=== PATIENT | male | born 1965 | race Caucasian/White ===

== ENCOUNTER 2020-12-09 12:15 | Emergency (ER) | payer BC, SELFPAY ==
--- NOTE | ~2020-12-09 | US_ITS ---
EXAMINATION: US venous doppler [facility] DATE: 12/09/2020 15:05 INDICATION: Left lower limb pain and swelling TECHNIQUE: Grayscale ultrasound images without and with compression and Doppler ultrasound images of the left lower extremity veins were obtained. COMPARISON: None. FINDINGS: The visualized portions of left common femoral vein, profunda (deep) femoral vein, femoral vein, popl iteal vein, peroneal veins, posterior tibial veins, gastrocnemius vein and greater saphenous vein out flow are patent. IMPRESSION: 1. No deep venous thrombosis in the left lower limb. Reviewed, dictated and finalized at location B. 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
[2020-12-09 12:45] VITALS: BP 129/84; PULSE 81; RESP 18; TEMP 36.3; O2SAT 98
--- NOTE | 2020-12-09 15:18 | ED.EXTPRO ---
HPI - Extremity Problem General Chief complaint: Extremity Problem,Nontraumatic Stated complaint: possible DVT Time Seen by Provider: 12/09/20 14:41 Source: patient Mode of arrival: ambulatory Limitations: no limitations History of Present Illness HPI Narrative: This is a 55-year-old male that presents the emergency department for left lower extremity swelling x1 week. No known injury or trauma. Reports his was concerned for a blood clot, which prompted him to be seen. Denies fever, chest pain, shortness of breath, or erythema. Related Data Home Medications Medication Instructions Recorded Confirmed amlodipine 12/09/20 atorvastatin 12/09/20 lisinopril-hydrochlorothiazide tablet 12/09/20 tamsulosin 0.4 mg PO DAILY 12/09/20 tramadol 50 mg PO Q6H PRN 12/09/20 Allergies Allergy/AdvReac Type Severity Reaction Status Date / Time No Known Allergies Allergy Verified 12/09/20 12:51 Review of Systems Review of Systems: Narrative: CONSTITUTIONAL: Denies fever CARDIOVASCULAR: Reports edema. Denies chest pain RESPIRATORY: Denies dyspnea. MUSCULOSKELETAL: Reports back pain, joint pain, and myalgia. NEUROLOGIC: Denies numbness, or weakness. All systems reviewed & are unremarkable except as noted in HPI and below PMFSH Past Medical History Medical History (Updated 12/09/20 @ 15:23 by Yovana Franklin PA-C) History of hyperlipidemia History of hypertension Exam Narrative: Exam Narrative: GENERAL: Well-appearing, well-nourished, and in no acute distress. HEAD: Normocephalic, atraumatic. EYES: EOMI. EXTREMITIES: Normal range of motion. No erythema. Mild edema to the left patel and ankle. Normal DP pulses SKIN: Warm, dry, no rash. NEURO: No focal deficits. Alert and oriented x3. PSYCH: Normal mood and affect Course Vital Signs Vital signs: Vital Signs Temperature 97.4 F L 12/09/20 12:45 Pulse Rate 81 12/09/20 12:45 Respiratory Rate 18 12/09/20 12:45 Blood Pressure 129/84 12/09/20 12:45 Pulse Oximetry 98 12/09/20 12:45 Temperature 97.4 F L 12/09/20 12:45 Pulse Rate 81 12/09/20 12:45 Respiratory Rate 18 12/09/20 12:45 Blood Pressure 129/84 12/09/20 12:45 Pulse Oximetry 98 12/09/20 12:45 MDM - Extremity (Nontraumatic) MDM Narrative Medical decision making narrative: Patient presents the emergency department for left lower extremity swelling x1 week. Very mild swelling on exam. Patient denies any injuries or any pain. Left lower extremity venous Dopplers without evidence of DVT. Patient was updated on case findings. He is stable and felt appropriate for further outpatient evaluation. He was instructed to follow-up with his primary care doctor. He was given warnings to return to the ER Imaging Data Radiologist's impression: ITS Impressions Venous Doppler Study 12/09/20 15:06 IMPRESSION: 1. No deep venous thrombosis in the left lower limb. Critical Care Time Critical Care Time Critical Care Time: No Discharge Plan Discharge Clinical Impression: Lower extremity edema Patient Disposition: Home, Self-Care Condition: Stable Instructions: Leg Edema (ED) Additional Instructions: Return to the emergency department if you experience fever, chest pain, shortness of breath, increasing swelling with redness of your leg, or any other symptoms that are concerning to you Remain active. Wear compression stockings. Elevate your legs while seated Follow-up with your primary care doctor Prescriptions: No Action atorvastatin 20 mg tablet RF: 0 lisinopril-hydrochlorothiazide 20-12.5 mg tablet RF: 0 amlodipine 2.5 mg tablet RF: 0 tramadol 50 mg Tablet 50 mg PO Q6H PRN (Reason: Pain) RF: 0 tamsulosin 0.4 mg Capsule 0.4 mg PO DAILY RF: 0 Follow-up/Referrals: Amy,Juan David Hodge MD [Primary Care Provider] - 3 Days
[2020-12-09 15:31] VITALS: RESP 16
== END 2020-12-09 15:32 | disposition home or self-care (01) ==
PROVIDERS: Emergency Provider Emergency Medicine; PCP Internal Medicine
DX: R60.0 Localized edema (principal); E78.5 Hyperlipidemia, unspecified; I10 Essential (primary) hypertension
CPT/HCPCS: 93971; 99284

== ENCOUNTER 2022-07-10 14:03 | Observation (INO) | payer BC, SELFPAY ==
[2022-07-10] VITALS (37 sets, daily range): BP systolic 119–170; BP diastolic 72–96; PULSE 54–97; RESP 14–25; TEMP 36.4–37.2; O2SAT 91–98; BMI 40.8
--- NOTE | ~2022-07-10 | CT_ITS ---
EXAMINATION: CTA chest PE protocol DATE: 07/10/2022 15:44 INDICATION: Shortness of breath and midsternal chest pain. TECHNIQUE: Computed tomography (CT) pulmonary angiogram of the chest was performed with 100 mL Omnipa que-350 intravenous contrast. Additional 3D reconstructions utilizing coronal maximum intensity proje ction (MIP) were performed. Automated exposure control and iterative reconstruction technique were em ployed. The dose-length product was 998.39 mGy-cm. COMPARISON: None FINDINGS: Good contrast opacification of the pulmonary arteries. There is mild streak artifact from dense contr ast in the superior vena cava and right atrium. Scattered respiratory motion artifact most prominent in the bilateral lower lung zones where it decreases sensitivity in the smaller subsegmental pulmonar y arteries at the basilar segments of the bilateral lower lobes and at the lingula. 10 mm nodule with relatively smooth margins in the superior segment of the left lower lobe. Dependent atelectasis with round glass opacities and volume loss with bronchovascular crowding the bilateral lower lobes. No pn eumonia, pulmonary edema, pleural effusion or pneumothorax. Cardiomegaly. Small pericardial effusion. Thoracic aorta is normal caliber with no dissection. No pathologically enlarged thoracic lymphadenop athy. Visualized upper abdomen is unremarkable. Mild thoracic spondylosis with bridging osteophytes a t multiple levels consistent with diffuse idiopathic skeletal hyperostosis (DISH). Subdermal 1.9 cm s ebaceous cyst in the midline posterior to the midthoracic spine. IMPRESSION: 1. No pulmonary embolism. Sensitivity decreased in some of the smaller basilar subsegmental pulmonary arteries. 2. Small pericardial effusion. Line 3. Indeterminate 10 mm nodules in the superior segment of the left lower lobe. Recommend correlation with any prior outside imaging. If long-term stability cannot be confirmed would recommend further ev aluation with either PET/CT or 3 month follow-up low-dose noncontrast chest CT. Reviewed, dictated and finalized at location A. IMPRESSION: 1. No pulmonary embolism. Sensitivity decreased in some of the smaller basilar subsegmental pulmonary arteries. 2. Small pericardial effusion. Line 3. Indeterminate 10 mm nodules in the superior segment of the left lower lobe. Recommend correlation with any prior outside imaging. If long-term stability ca nnot be confirmed would recommend further evaluation with either PET/CT or 3 mo nth follow-up low-dose noncontrast chest CT.
--- NOTE | ~2022-07-10 | NM_ITS ---
EXAMINATION: NM elmer stress w perfusion DATE: 07/11/2022 10:51 INDICATION: Chest pain. TECHNIQUE: Rest images were obtained following intravenous administration of 9.6 mCi Tc99m tetrofosmi n (Myoview). The patient was infused intravenously with Lexiscan (regadenoson). Then, 31.77 mCi Tc99m tetrofosmin (Myoview) was administered intravenously, and stress images were obtained. Data was destiny nstructed into short axis and horizontal and vertical long axis SPECT images. Gated SPECT images were also obtained. COMPARISON: Chest CT 07/10/2022 FINDINGS: There is no definite reversible or fixed perfusion abnormality to suggest ischemia or infar ction. There is no segmental wall motion abnormality. Left ventricular ejection fraction measures 5 9%. IMPRESSION: 1. No definite ischemia or infarct. 2. Normal left ventricular ejection fraction measuring 59%. Reviewed, dictated and finalized at location A.
--- NOTE | ~2022-07-10 | XR_ITS ---
XR chest 2V DATE: 07/10/2022 INDICATION: Chest pain TECHNIQUE: AP and lateral views COMPARISON: 03/14/2014 PA chest FINDINGS: Heart size is within normal range. No hilar or mediastinal enlargement. No pulmonary infilt rate or consolidation, pleural effusion or pulmonary vascular congestion or pneumothorax is detected. IMPRESSION: No active cardiopulmonary disease Reviewed, dictated and finalized at location B.
--- NOTE | 2022-07-10 14:07 | ECG_ITS ---
Measurements Intervals [place] Rate: 69 P: 7 OR: 204 QRS: 6 QRSD: 119 T: 46 QT: 381 QTc: 410 Interpretive Statements SINUS RHYTHM MODERATE INTRAVENTRICULAR CONDUCTION DELAY [110+ ms QRS DURATION] NO PREVIOUS ECG AVAILABLE FOR COMPARISON Electronically Signed On 07-10-2022 20:28:49 CDT by Rosanne Romero M.D.
--- NOTE | 2022-07-10 14:29 | ED.CHESTPAIN ---
HPI - Chest Pain General Chief Complaint: Chest Pain Stated Complaint: chest pain Time Seen by Provider: 07/10/22 14:30 Source: patient Mode of arrival: ambulatory History of Present Illness HPI narrative: 57 years old white male drove himself to the emergency room with sudden onset of retrosternal chest pain, hurt with breathing, started while driving his car, 1 hour prior to arrival to the emergency room. History of hypertension, hyperlipidemia, morbidly obese, history of tobacco use. He denies any family history of coronary artery disease. Patient denies any fever, chills, nausea, vomiting, sweating EKG on arrival to the emergency room showed subtle change in the inferior leads, EKG was faxed to Dr. Barrios who states that patient does not have STEMI at this time. Related Data Home Medications Medication Instructions Recorded Confirmed atorvastatin 20 mg tablet mg 07/10/22 lisinopril 20 tablet 07/10/22 mg-hydrochlorothiazide 12.5 mg tablet metoprolol succinate 100 mg mg PO 07/10/22 tablet,extended release 24 hr tamsulosin 0.4 mg capsule mg PO 07/10/22 Allergies Allergy/AdvReac Type Severity Reaction Status Date / Time No Known Allergies Allergy Verified 07/10/22 15:13 Review of Systems Review of Systems: All systems reviewed & are unremarkable except as noted in HPI and below PMFSH Past Medical History Medical History History of hyperlipidemia History of hypertension Exam Narrative: General appearance: Well-developed, well-nourished Skin: Normal color Head: Normocephalic, nontraumatic Eyes: Clear conjunctiva ENT: Oropharynx normal, ears normal, nose normal Neck: Supple, nontender Chest and respiratory: Airway patent, no respiratory distress, no accessory muscle use Heart: Regular rate/rhythm Abdomen: Soft, nontender, no organomegaly, quiet bowel sounds Vascular: Normal peripheral pulses, normal capillary refill. Musculoskeletal: Normal range of motion, nontender back Neurologic: Alert and oriented ?3, AIDS COUNSELOR is normal as tested, no gross motor deficit Course Consultations Consultation #1: Dr. geller EKG is suspicious for STEMI Date: 07/10/22 Time: 14:47 Consultation #2: Dr. Lagunas, Date: 07/10/22 Time: 14:48 Consultation #3: Dr. Barrios came to the emergency room and evaluated the patient and decided to admit patient to IMU for further evaluation. Date: 07/10/22 Time: 16:22 Vital Signs Vital signs: Vital Signs Temperature 36.7 C 07/10/22 14:12 Pulse Rate 69 07/10/22 14:12 Respiratory Rate 20 07/10/22 14:12 Blood Pressure 161/96 H 07/10/22 14:12 Pulse Oximetry 96 07/10/22 14:12 Oxygen Delivery Room Air 07/10/22 14:12 Temperature 36.7 C 07/10/22 14:12 Pulse Rate 69 07/10/22 14:12 Respiratory Rate 20 07/10/22 14:12 Blood Pressure 161/96 H 07/10/22 14:12 Pulse Oximetry 96 07/10/22 14:12 Oxygen Delivery Room Air 07/10/22 14:12 MDM - Chest Pain Imaging Data Radiologist's impression: Impressions Chest X-Ray 07/10/22 14:45 IMPRESSION: No active cardiopulmonary disease Chest CTA 07/10/22 15:56 IMPRESSION: 1. No pulmonary embolism. Sensitivity decreased in some of the smaller basilar subsegmental pulmonary arteries. 2. Small pericardial effusion. Line 3. Indeterminate 10 mm nodules in the superior segment of the left lower lobe. Recommend correlation with any prior outside imaging. If long-term stability cannot be confirmed would recommend further evaluation with either PET/CT or 3 month follow-up low-dose noncontrast chest CT. ECG Data EKG #1: Attestation: I
[2022-07-10 14:43] LABS: Alanine Aminotransferase 43 U/L (6-50); Albumin Level 4.7 g/dL (3.5-5.1); Alkaline Phosphatase 65 U/L (38-126); Anion Gap 4 mmol/L (8-16); Aspartate Amino Transferase 30 U/L (17-59); Bilirubin,Total 0.8 mg/dL (0.2-1.3); Blood Urea Nitrogen 15 mg/dL (9-20); Calcium 9.1 mg/dL (8.4-10.2); Carbon Dioxide 30 mmol/L (22-30); Chloride 100 mmol/L (98-107); Estimated CRCL calculation 120 ml/min; Estimated Glomerular Filt Rate > 60; Glucose 164 mg/dL (65-110); INR 1.1; Lipase 91 U/L (23-300); Potassium 3.5 mmol/L (3.4-5.0); Prothrombin Time 13.3 Seconds (11.1-14.7); Sodium 134 mmol/L (137-145)
[2022-07-10 14:44] LABS: Partial Thromboplastin Time 28.7 SECONDS (22.3-36.8)
[2022-07-10] MEDS: ONDANSETRON INJ 4 MG/2 ML VIAL IV PUSH (14:45)
[2022-07-10] MEDS: ASPIRIN 81 MG CHEWABLE TABLET 324 MG PO (14:46)
[2022-07-10] MEDS: MORPHINE SULFATE (*CRX) 4 MG/ML INJ IV PUSH (14:50)
--- NOTE | 2022-07-10 14:51 | ECG_ITS ---
Measurements Intervals [place] Rate: 52 P: 16 ME: 220 QRS: 20 QRSD: 117 T: 56 QT: 396 QTc: 371 Interpretive Statements SINUS BRADYCARDIA WITH FIRST DEGREE AV BLOCK MODERATE INTRAVENTRICULAR CONDUCTION DELAY [110+ ms QRS DURATION] COMPARED TO ECG 07/10/2022 14:09:21 SINUS BRADYCARDIA NOW PRESENT FIRST DEGREE AV BLOCK NOW PRESENT THE PATIENT NOW HAS MORE PRONOUNCED ST ELEVATION INFERIORLY, CONSIDER PERICARDITIS, ISCHEMIA ETC. Electronically Signed On 07-10-2022 20:30:43 CDT by Rosanne Romero M.D.
[2022-07-10 14:54] LABS: Troponin I < 0.012 ng/mL (0.000-0.034)
[2022-07-10 15:16] LABS: Erythrocyte Sedimentation Rate 9 mm/hr (0-20)
[2022-07-10] MEDS: HEPARIN SOD/D5W 100 UNITS/ML 25,000 UNITS/250 ML BAG 10 UNITS IV CONT (15:27)
[2022-07-10 15:35] LABS: D Dimer 1.74 ug/mL (<0.48)
[2022-07-10 15:39] LABS: Basophils Absolute Auto 0.1 K/mm3 (0.0-0.1); Basophils Percent Auto 0.6 % (0.2-1.2); Eosinophils Absolute Auto 0.1 K/mm3 (0-0.3); Eosinophils Percent Auto 1.5 % (0-4.4); Hematocrit 45.3 % (42.0-52.0); Hemoglobin 14.8 g/dL (14.0-18.0); Immature Granulocyte Absolute 0.03 K/mm3 (0.00-0.031); Immature Granulocyte Percent A 0.3 % (0-0.5); Lymphocytes Percent Auto 17.1 % (18.3-44.2); Mean Corpuscular HGB Conc 32.7 g/dl (32-36); Mean Corpuscular Hemoglobin 30.1 pg (26-34); Mean Corpuscular Volume 92.3 fl (80-100); Mean Platelet Volume 12.6 fl (7.4-10.4); Monocytes Absolute Auto 0.6 K/mm3 (0.1-0.6); Monocytes Percent Auto 7.3 % (2.6-8.5); Neutrophils Absolute Auto 6.4 K/mm3 (1.3-6.7); Neutrophils Percent Auto 73.2 % (45.5-73.1); Platelet Count Result 144 k/mm3 (150-375); Red Blood Count 4.91 M/mm3 (4.6-6.20); Red Cell Distribution Width 12.3 % (11.5-14.5); White Blood Count 8.8 K/mm3 (4.5-10.0)
[2022-07-10 16:10] LABS: Prothrombin Time 12.5 Seconds (11.1-14.7)
[2022-07-10 16:11] LABS: Partial Thromboplastin Time 29.4 SECONDS (22.3-36.8)
--- NOTE | 2022-07-10 16:28 | PM.CNCAR ---
Assessment and Plan Assessment and plan (1) Chest pain: Code(s): R07.9 - Chest pain, unspecified <KRISTOPHER Cruz - Last Filed: 07/10/22 18:47> Status: Acute <Cleopatra ALoraine ZeldaKRISTOPHER barnhart - Last Filed: 07/10/22 18:47> Assessment and Plan: Abrupt onset of substernal chest pain this afternoon. Has obtained some relief with administration of ASA, morphine. Concern for PE, but this was ruled out with chest CTA. Initial troponin and second troponin level remain negative. Significant discomfort with inspiration. Initial and repeat EKGs showing subtle ST changes in leads II and aVF with morphology consistent with pericarditis, no reciprocal changes. Finding of pericardial effusion on chest CT also supports diagnosis of pericarditis though not confirmatory. Patient case including patient presentation, laboratory values, diagnostic tests, and EKG's reviewed with Dr. Lagunas and Dr. Romero. Overall clinical picture most consistent with acute pericarditis - Will treat for this. He does have risk factors for CAD, underlying CAD cannot be excluded. 2D echo with Doppler has been ordered and will be reviewed Follow up with third troponin level Discontinue heparin Will start colchicine 0.6mg q12h Obtain repeat EKG in a.m. <KRISTOPHER Cruz - Last Filed: 07/10/22 18:47> Abrupt onset of substernal chest pain this afternoon. Has obtained some relief with administration of ASA, morphine. Concern for PE, but this was ruled out with chest CTA. Initial troponin and second troponin level remain negative. Significant discomfort with inspiration. Initial and repeat EKGs showing subtle ST changes in leads II and aVF with morphology consistent with pericarditis, no reciprocal changes. Finding of pericardial effusion on chest CT also supports diagnosis of pericarditis though not confirmatory. Patient case including patient presentation, laboratory values, diagnostic tests, and EKG's reviewed with Dr. Lagunas and Dr. Romero. Overall clinical picture most consistent with acute pericarditis - Will treat for this. He does have risk factors for CAD, underlying CAD cannot be excluded. 2D echo with Doppler has been ordered and will be reviewed Follow up with third troponin level Discontinue heparin Will start colchicine 0.6mg q12h Obtain repeat EKG in a.m. <Rosanne Romero MD - Last Filed: 07/10/22 19:55> Assessment and Plan: 07/10/2022 19:42 pm, Attending Physician: I personally examined the chart and the pt in the emergency room, reviewed 3 EKGs, labs, CXR and CT scan. I spoke to nurse practitioner Charley Thompson, Dr. Taylor, and Dr. Lagunas to coordinate care. Pt had fairly abrupt onset of substernal chest discomfort as described above which has been continuous although somewhat improved. When the patient was admitted to the ER, his EKG was shown to the interventionalist, Dr. Lagunas, who felt this was not a STEMI. The patient is still uncomfortable. Any movement such as turning or twisting aggravates the pain. It is also pleuritic, and were supine. No recent problems with any exertional chest pain or shortness of breath. And daughter at bedside. History of hypertension and hyperlipidemia, treated. Occasionally smokes cigars. No family history of premature CAD. Physical exam: General: Sitting in bed, uncomfortable but not in respiratory distress. SHEENT: Extraocular muscles intact Cardiac: Regular rate and rhythm, 2/6 murmur at the left lower sternal border and apex (not typical for rub) Lungs: Clear to auscultation, no respiratory distress Abdomen: Soft and nontender Extremities: No lower extremity edema, pedal pulses intact Skin: No lesions noted. Musculoskeletal: No chest wall tenderness Neurologic: Alert and oriented, moved all extremities Psychiatric: Normal affect Labs and imaging: EKGs on my personal review show sinus rhythm with mild concave up ST elevation in the inf
--- NOTE | 2022-07-10 16:45 | PM.IMHP ---
H&P: HPI History of Present Illness Date/Time: 07/10/22 16:45 Chief Complaint: Chest pain. Narrative: This is a pleasant 57-year-old male with hypertension, hyperlipidemia, obstructive sleep apnea, and benign prostatic hyperplasia who presented to the emergency department for evaluation of chest pain. He was in his usual state of health this morning and he had a normal day at the office. After lunch he was driving to an appointment and simply while sitting down the car he developed a sudden pressure or tight like sensation in the midsternal chest region associated with shortness of breath. The discomfort did not radiate. It did become more intense when walking around and it seems to be worse when lying flat. It is also a bit worse with movement and deep inspiration. Morphine given the emergency department took the edge off somewhat though he continues to have discomfort. Associated symptoms include shortness of breath though he denies nausea, vomiting, and diaphoresis. He has never had similar symptoms in the past and he has no known history of coronary artery disease. A stress test done many years ago which was reportedly unremarkable. Vital signs have been stable since arrival. Labs were pretty unremarkable with a negative troponin though his D-dimer was a bit elevated. CTA of the chest was negative for pulmonary embolism though did note a small pericardial effusion and indeterminate pulmonary nodules. EKG showed mild ST elevation in the inferior leads without reciprocal findings and he was evaluated by the financial analyst accountant in the ER who do not feel that the patient needs to be taken to the section laborer this evening. Concerns are for possible pericarditis and he is being admitted overnight for closer monitoring and evaluation. Review of Systems Review of Systems: Twelve systems were reviewed. He had COVID in October of 2020 though no recent illnesses. No fever, chills, or sweats. No sick contacts. No syncope or presyncope. He denies orthopnea, paroxysmal nocturnal dyspnea, and lower extremity edema. He uses his CPAP at night though he does not think it really helps him sleep much. Appetite has been fine. No significant GERD symptoms. He denies nausea, vomiting, and diarrhea. He has not done any recent heavy lifting or exertion where he could have injured himself. Except as documented, all other systems were reviewed and are negative. [facility] Past Medical History Medical History (Updated 07/10/22 @ 22:20 by Johana G. Gerling, PA-C) Benign prostatic hyperplasia Hyperlipidemia Hypertension Obstructive sleep apnea on CPAP Prediabetes Surgical History Surgical History (Updated 07/10/22 @ 22:17 by Johana Dover PA-C) History of arthroscopy of left knee History of colonoscopy History of lumbar laminectomy History of vasectomy Family History Family History Mother Acute myocardial infarction, Onset Age: 83 Patient 88 years old Hypertension Father Cerebrovascular accident Social History Social History (Updated 07/10/22 @ 22:18 by Johana Dover PA-C) Social History: The patient is and lives with his in [place]. They have 2 grown children. 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 Lifelong nonsmoker though he does have an occasional cigar. He drinks perhaps 1 to 2 alcoholic beverages, most nights of the week. No illicit substance use. He designates his , Gris Gates, as his surrogate decision maker and he wishes to be a full code. Spiritual care concerns: No Meds Home Medications and Allergies Home Medications Medication Instructions Recorded Confirmed Type aspirin 81 mg tablet,delayed 81 mg PO DAILY 07/10/22 07/10/22 History release (Adult Low Dose Aspirin) atorvastatin 20 mg tablet 20 mg PO DAILY 07/10/22 07/10/22 History lisinopril 20 1 tablet PO DAILY 07/10
[2022-07-10] MEDS: NITROGLYCERIN OINTMENT 1 INCH DOSE TRANSDERM (16:49)
--- NOTE | 2022-07-10 17:30 | ECG_ITS ---
Measurements Intervals [place] Rate: 74 P: 1 MD: 212 QRS: 7 QRSD: 114 T: 30 QT: 356 QTc: 397 Interpretive Statements SINUS RHYTHM WITH FIRST DEGREE AV BLOCK INTRAVENTRICULAR CONDUCTION DELAY BORDERLINE R WAVE PROGRESSION, ANTERIOR LEADS INFERIOR INFARCT, AGE INDETERMINATE BASELINE WANDER- V4 ABNORMAL ECG COMPARED TO ECG 07/10/2022 14:44:11 SINUS RHYTHM NOW PRESENT MYOCARDIAL INFARCT FINDING NOW PRESENT Electronically Signed On 07-13-2022 7:49:49 CDT by Abilio Morales D.O.
[2022-07-10 18:00] LABS: Troponin I < 0.012 ng/mL (0.000-0.034)
[2022-07-10] MEDS: COLCHICINE 0.6 MG TABLET PO (19:09)
[2022-07-10] MEDS: KETOROLAC 30 MG/ML VIAL (*BKC) IV PUSH (19:29)
[2022-07-10 20:17] LABS: SARS-CoV-2 RNA PCR Negative
--- NOTE | 2022-07-10 20:48 | ADMGEN ---
This patient, Travis Gates, was admitted to IMU Room 205-02. Patient/family oriented to hospital policies and general routines including ID bracelet, bed and alarms, visiting hours, pain management, procedures, bathroom and other care routines, personal items, smoking policy, room service/diet, and visiting hours. Information on how to activate the Rapid Response Team has been discussed. Patient/Family are encouraged to report perceived risks to care and to ask questions if they do not understand what they are told or what they should do.
[2022-07-10 22:04] LABS: Troponin I < 0.012 ng/mL (0.000-0.034)
[2022-07-10] MEDS: IBUPROFEN 600 MG TABLET PO (22:54)
[2022-07-11] VITALS (12 sets, daily range): BP systolic 124–153; BP diastolic 60–91; PULSE 60–97; RESP 16–20; TEMP 36.4–36.6; O2SAT 95–98
--- NOTE | 2022-07-11 | ECHO_ITS ---
Patient Info Name: Travis Gates Age: 57 years : 1965 Gender: Male Ht: 77 in Wt: 345 lbs BSA: 2.97 m2 HR: 57 bpm BP: 124 / 60 mmHg Heart Rhythm: Sinus Rhythm Exam Date: 07/11/2022 8:54 AM Exam Location: [facility] Patient Status: Inpatient Admit Date: 07/10/2022 Staff Ordering Physician: Cleopatra Ndiaye Porter Bath: Nicholas Avendaño RDCS, RT Attending Provider: Marina Celaya MD Referring Physician: Zelda TELLEZ; Exam Type: CA echo doppler color flow Study Info Indications R07.89 - Other chest pain Complete two-dimensional, color flow and Doppler transthoracic echocardiogram is performed with contrast to opacify the left ventricle and to improve the deliniation of the left ventricle endocardial borders. Summary 1. Normal left ventricular size with moderate concentric hypertrophy. Good systolic function of all segments with ejection fraction of 65-70%. Diastolic dysfunction is present. 2. Normal right ventricular size with mild hypokinesis. 3. No significant valve disease. 4. Mildly dilated inferior vena cava. 5. Small circumferential pericardial effusion, maximum 1.0 cm thick, with no evidence of tamponade. 6. Normal sinus rhythm. 7. Somewhat technically difficult study; IV definity echo contrast used. Left Ventricle Left ventricular chamber dimension is normal. Left ventricular systolic function is normal, estimated at 65-70%. There is moderately increased left ventricular wall thickness. Left ventricular septal wall motion is normal. The left ventricular diastolic function is grade II diastolic dysfunction. Right Ventricle Right ventricular chamber dimension is normal. Right ventricular systolic function is reduced. Left Atria Left atrial chamber dimension is normal. Right Atria Right atrial chamber dimension is normal. Aortic Valve The aortic valve is trileaflet. There is no aortic valve sclerosis. There is no aortic valve stenosis. There is no aortic valve regurgitation. Pulmonic Valve The pulmonic valve is normal. There is no pulmonic valve stenosis. There is no pulmonic regurgitation. Mitral Valve The mitral valve has normal leaflets. There is no mitral valve stenosis. There is no mitral valve regurgitation. Tricuspid Valve The tricuspid valve leaflets are normal. There is no significant tricuspid valve stenosis. There is trace tricuspid valve regurgitation. No pulmonary hypertension, estimated pulmonary arterial systolic pressure is Empty. Pericardium/Pleural The pericardium appears normal. There is small circumferential pericardial effusion. Inferior Vena Cava Dilated inferior vena cava with >50% collapse upon inspiration consistent with Empty right atrial pressure, Empty. Aorta The aortic root size at the sinus of Valsalva is normal. The prox ascending aorta size is normal. Left Ventricular Outflow Tract Name Value Normal LVOT 2D LVOT Diameter 2.2 cm LVOT Doppler LVOT Peak Gradient 4 mmHg LVOT Mean Gradient 2 mmHg LVOT VTI 18 cm
[2022-07-11 05:00] LABS: Basophils Percent Auto 0.3 % (0.2-1.2); Eosinophils Percent Auto 0.2 % (0-4.4); Hematocrit 41.2 % (42.0-52.0); Hemoglobin 13.4 g/dL (14.0-18.0); Immature Granulocyte Absolute 0.03 K/mm3 (0.00-0.031); Immature Granulocyte Percent A 0.3 % (0-0.5); Immature Platelet Fraction Pct 8.5 % (0.9-11.2); Lymphocytes Absolute Auto 1.83 K/mm3 (0.9-3.2); Lymphocytes Percent Auto 16.9 % (18.3-44.2); Mean Corpuscular HGB Conc 32.5 g/dl (32-36); Mean Corpuscular Hemoglobin 30.4 pg (26-34); Mean Corpuscular Volume 93.4 fl (80-100); Mean Platelet Volume 11.8 fl (7.4-10.4); Monocytes Absolute Auto 1.4 K/mm3 (0.1-0.6); Neutrophils Absolute Auto 7.5 K/mm3 (1.3-6.7); Neutrophils Percent Auto 69.3 % (45.5-73.1); Platelet Count Result 130 k/mm3 (150-375); Red Blood Count 4.41 M/mm3 (4.6-6.20); Red Cell Distribution Width 12.4 % (11.5-14.5); White Blood Count 10.8 K/mm3 (4.5-10.0)
[2022-07-11 05:21] LABS: Anion Gap 10 mmol/L (8-16); Blood Urea Nitrogen 23 mg/dL (9-20); CRP 5.9 mg/dL (<1.0); Calcium 8.9 mg/dL (8.4-10.2); Carbon Dioxide 31 mmol/L (22-30); Chloride 96 mmol/L (98-107); Estimated CRCL calculation 93 ml/min; Estimated Glomerular Filt Rate 57; Glucose 169 mg/dL (65-110); Magnesium 1.9 mg/dL (1.6-2.3); Potassium 3.6 mmol/L (3.4-5.0); Sodium 137 mmol/L (137-145)
[2022-07-11 05:44] LABS: Thyroid Stimulating Hormone Reflex 0.381 uIU/mL (0.465-4.68)
[2022-07-11] MEDS: IBUPROFEN 600 MG TABLET PO ×2 (06:00→14:15)
[2022-07-11 06:45] LABS: Free T4 Free Thyroxine Reflex 0.79 ng/dL (0.78-2.19)
[2022-07-11 07:31] LABS: Total Triiodothyronine (T3) 0.89 NG/ML (0.97-1.69)
[2022-07-11 07:48] LABS: Erythrocyte Sedimentation Rate 90 mm/hr (0-20)
--- NOTE | 2022-07-11 08:00 | EST_ITS ---
Patient Info Name: Travis Gates Age: 57 years : 1965 Gender: Male Ht: 77 in Wt: 343 lbs BSA: 2.97 m2 HR: 58 bpm BP: 129 / 84 mmHg Heart Rhythm: Sinus Rhythm Exam Date: 07/11/2022 9:51 AM Exam Location: [facility] Stress Patient Status: Inpatient Admit Date: 07/10/2022 Staff Ordering Physician: Rosanne Romero MD Attending Provider: Marina Celaya MD Exercise Technologist: Veda Murray CT Exercise Physician: Rosanne Romero MD Exam Type: CA stress elmer w NM Study Info Indications R07.9 - Chest pain, unspecified A regadenoson stress test was performed. Summary 1. Resting EKG shows resting inferolateral ST-elevation, concave up, consistent with pericarditis. 2. No further abnormal ST-T wave changes with lexiscan. 3. Nuclear test results to follow. Protocol: Lexiscan Stress ECG Details Stage: REST Duration (min): 1 min : 21 sec HR (bpm): 59 SBP (mmHg): 129 DBP (mmHg): 84 Stage: REST Duration (min): 5 min : 25 sec HR (bpm): 62 SBP (mmHg): 129 DBP (mmHg): 84 Stage: STAGE 1 Duration (min): 1 min : 0 sec HR (bpm): 70 SBP (mmHg): 129 DBP (mmHg): 89 Stage: RECOVERY Duration (min): 1 min : 0 sec HR (bpm): 81 SBP (mmHg): 129 DBP (mmHg): 89 Stage: RECOVERY Duration (min): 2 min : 0 sec HR (bpm): 74 SBP (mmHg): 129 DBP (mmHg): 89 Stage: RECOVERY Duration (min): 3 min : 0 sec HR (bpm): 71 SBP (mmHg): 136 DBP (mmHg): 85 Stage: RECOVERY Duration (min): 3 min : 21 sec HR (bpm): 71 SBP (mmHg): 136 DBP (mmHg): 85 Rest HR: 62 bpm Peak HR: 84 bpm Rest Sys BP: 129 mmHg Peak Sys BP: 136 mmHg Max Pred HR: 164 bpm % Max Pred HR: 51 % Target HR: 139 bpm Max RPP: 11,424 bpm*mmHg BP Response: Normal blood pressure response Termination Reason: Completed protocol Cardiac Symptoms: None Total Time: 1 min : 0 sec Rest Coon BP: 84 mmHg Peak Coon BP: 85 mmHg Total Dose: 0.4 mg Resting ECG Normal sinus rhythm. Resting inferior lateral ST-elevation, concave up, consistent with pericarditis. Stress ECG No abnormal ST/T wave changes with exercise. Arrhythmias None. Report Signatures
[2022-07-11] MEDS: METOPROLOL SUCCINATE EXT REL 100 MG TABCR PO (08:16)
[2022-07-11] MEDS: hydroCHLOROthiazide 12.5 MG CAPSULE PO (08:16)
[2022-07-11] MEDS: TAMSULOSIN HCL 0.4 MG CAPSULE PO (08:16)
[2022-07-11] MEDS: ATORVASTATIN 20 MG TABLET PO (08:16)
[2022-07-11] MEDS: lisinopriL 20 MG TABLET PO (08:16)
[2022-07-11] MEDS: OMEGA 3 POLYUNSAT FATTY ACIDS 1 GM CAP 2 GM PO (08:16)
[2022-07-11] MEDS: ASPIRIN 81 MG ENTERIC TABLET PO (08:16)
[2022-07-11] MEDS: MULTIVITAMINS /C LUTEIN (CENTRUM SILVER) TABLET *BKC 1 TAB PO (08:16)
[2022-07-11] MEDS: COLCHICINE 0.6 MG TABLET PO (08:17)
[2022-07-11] MEDS: PERFLUTREN LIPID MICROSPHERES 1.5 ML VIAL DILUTED TO 10 ML TOTAL VOLUME IV PUSH (08:57)
--- NOTE | 2022-07-11 08:57 | IVDEFINITY ---
Prior to administration of IV Definity the patient was educated on the risks and benefits of the imaging enhancing agent including potential adverse side effects. The patient verbalized understanding. Allergies were verified. No exclusion criteria were identified and at least one of the following inclusion criteria were met: 1) physician request, 2) patient technically difficult to image (per the [place] [employer]ocardi[employer] guidelines of two or more segments not discernable within the apical view), or 3) questionable left ventricular function. ?
--- NOTE | 2022-07-11 09:09 | PC.NURSE ---
Pt to nuclear medicine for chapin
--- NOTE | 2022-07-11 10:42 | PC.NURSE ---
Pt returned from [email or web address]
--- NOTE | 2022-07-11 14:06 | PM.PNCARD ---
Progress Note: A&P Assessment and Plan (1) Acute pericarditis: Code(s): I30.9 - Acute pericarditis, unspecified Status: Acute Assessment and Plan: Patient presented with acute chest pain an EKG consistent with pericarditis. troponins were all negative sed rate was 9 but went up to 90 this morning consistent with acute inflammation/pericarditis echo and CT scan showed a small pericardial effusion without tamponade improved with colchicine and ibuprofen Roz showed no ischemia, as expected. Rec. primary prevention. okay for discharge; will arrange for outpatient follow-up recommend 3 months of colchicine and will wean ibuprofen off over the next few weeks. Will reduce the dose to 400 mg t.i.d. on Saturday. (2) Abnormal echocardiogram: Code(s): R93.1 - Abnormal findings on diagnostic imaging of heart and coronary circulation Status: Acute Assessment and Plan: patient's echo had some abnormal findings: Had LVH and diastolic dysfunction, likely from the patient's obesity, hypertension and sleep apnea blood pressure may need tighter control; follow-up with /thu OSORIO Also had right ventricular hypokinesis which makes me wonder if the patient's sleep apnea is well treated. (3) Hypertension: Code(s): I10 - Essential (primary) hypertension Status: Acute Assessment and Plan: Blood pressure runs a little high at times FU w/ Dr. Reyes (4) WESLEY (obstructive sleep apnea): Code(s): G47.33 - Obstructive sleep apnea (adult) (pediatric) Status: Acute Assessment and Plan: Compliant with CPAP at home May need re-evaluation in view of RV hypokinesis (5) Pulmonary nodules: Code(s): R91.8 - Other nonspecific abnormal finding of lung field Status: Acute Assessment and Plan: Pulmonary nodules Patient aware, will follow-up with Dr. Reyes Subjective Date/time seen: 07/11/22 14:06 Follow-up for suspected acute pericarditis. Patient is feeling a lot better today, 95% better with only mild pain with inspiration. No shortness of breaths. Troponins were all negative. Review of Systems Review of Systems: Very minimal pleuritic chest pain. No shortness of breath, dizziness, abdominal pain, diarrhea or edema. Exam Const: General: cooperative, healthy appearing and comfortable; No confusion Orientation/consciousness: oriented to person, patient oriented x3 and No confusion Other: Obese HENMT: Mouth: Yes moist mucous membranes Eyes: EOM: EOMs intact bilaterally Resp: Effort & Inspection: normal respiratory effort Auscultation: clear to auscultation bilaterally Cardio: Rate: regular rate Rhythm: regular rhythm Heart sounds: no murmurs and no rubs Other: The possible murmur heard yesterday has resolved, so perhaps it was a rub. GI: Inspection: normal to inspection GI Palp: No abdominal tenderness Skin: General skin exam: no rashes or lesions noted Neuro: General: oriented to person, patient oriented x3 and No confusion Extrem: Right lower extremity: no edema Left lower extremity: no edema Psych: Appearance: grossly normal Mental Status: mental status grossly normal Objective Data Vital Signs Vital Signs: Vital Signs - 24 hr 07/10/22 14:12 07/10/22 14:28 07/10/22 14:29 Temperature 98.0 F Pulse Rate 69 55 L 54 L Respiratory Rate 20 20 14 Blood Pressure 161/96 H 135/83 Pulse Oximetry 96 96 94 Oxygen Delivery Room Air Oxygen Flow Rate Fraction of Inspired Oxygen 07/10/22 14:42 07/10/22 15:01 07/10/22 15:02 Temperature Pulse Rate 55 L 54 L 54 L Respiratory Rate 18 18 25 H Blood Pressure 162/74 H Pulse Oximetry 95 92 Oxygen Delivery Oxygen Flow Rate Fraction of Inspired Oxygen 07/10/22 14:50 07/10/22 15:15 07/10/22 15:16 Temperature Pulse Rate 59 L 58 L Respiratory Rate 20 20 Blood Pressure 170/80 H Pulse Oximetry 93 9
--- NOTE | 2022-07-11 15:39 | PM.DS ---
DS: Admitting Diagnosis Discharge Date 07/11/2022 Admitting Diagnosis chest pain DS: Discharge Diagnosis Discharge Diagnosis (1) Chest pain: Code(s): R07.9 - Chest pain, unspecified Status: Acute Assessment and Plan: Patient developed sudden onset of chest pain today while driving his car, associated with shortness of breath which seems to aggravate the pain. Aspirin morphine did help somewhat though he continues to have intermittent discomfort, worse when supine. Initial troponins have been negative. EKG did show some subtle ST elevation without reciprocal changes. Given his risk factors he is being admitted for close monitoring. Heparin drip has been discontinued. He has been started on colchicine 0.6 mg q.12 hours and an echocardiogram has been ordered for a.m.. Cardiology input is appreciated. (2) Abnormal EKG: Code(s): R94.31 - Abnormal electrocardiogram [ECG] [EKG] Status: Acute Assessment and Plan: Plan is as detailed above. (3) Pulmonary nodules: Code(s): R91.8 - Other nonspecific abnormal finding of lung field Status: Acute Assessment and Plan: No risk factors for malignancy. Should have a follow-up noncontrast CT in the next 3 to 6 months. (4) Hypertension: Code(s): I10 - Essential (primary) hypertension Status: Acute Assessment and Plan: Blood pressures were reviewed and they are stable. (5) Hyperlipidemia: Code(s): E78.5 - Hyperlipidemia, unspecified Status: Acute Assessment and Plan: Continue statin; LFTs within normal limits. (6) Obstructive sleep apnea on CPAP: Code(s): G47.33 - Obstructive sleep apnea (adult) (pediatric); Z99.89 - Dependence on other enabling machines and devices Status: Acute Assessment and Plan: CPAP will be provided for the patient to use while hospitalized. (7) Benign prostatic hyperplasia: Code(s): N40.0 - Benign prostatic hyperplasia without lower urinary tract symptoms Status: Acute Assessment and Plan: No acute issues. Continue tamsulosin. (8) Prediabetes: Code(s): R73.03 - Prediabetes Status: Acute Assessment and Plan: Check fasting glucose and hemoglobin A1c. DS: Summary Hospital Course Reason for hospitalization: Chest pain. Narrative: This is a pleasant 57-year-old male with hypertension, hyperlipidemia, obstructive sleep apnea, and benign prostatic hyperplasia who presented to the emergency department for evaluation of chest pain. He was in his usual state of health this morning and he had a normal day at the office. After lunch he was driving to an appointment and simply while sitting down the car he developed a sudden pressure or tight like sensation in the midsternal chest region associated with shortness of breath. The discomfort did not radiate. It did become more intense when walking around and it seems to be worse when lying flat. It is also a bit worse with movement and deep inspiration. Morphine given the emergency department took the edge off somewhat though he continues to have discomfort. Associated symptoms include shortness of breath though he denies nausea, vomiting, and diaphoresis. He has never had similar symptoms in the past and he has no known history of coronary artery disease.? A stress test done many years ago which was reportedly unremarkable. Vital signs have been stable since arrival. Labs were pretty unremarkable with a negative troponin though his D-dimer was a bit elevated. CTA of the chest was negative for pulmonary embolism though did note a small pericardial effusion and indeterminate pulmonary nodules. EKG showed mild ST elevation in the inferior leads without reciprocal findings and he was evaluated by the wind energy systems installer in the ER who do not feel that the patient needs to be taken to the cath laboratory technician this evening. Concerns are for possible pericarditis and he is being
--- NOTE | 2022-07-11 17:05 | PC.NURSE ---
On 07/11/22, the student, [Linda Gudino [facility] provided care and completed [employer] documentation on this patient. I have reviewed the student's documentation and agree with the findings.
== END 2022-07-11 16:10 | disposition home or self-care (01) ==
LOC: ANHED 16:27 → ANHIMU 19:52
PROVIDERS: Physician Assistant; Admitting Provider Family Medicine; Emergency Provider Emergency Medicine; PCP Internal Medicine; Visit Provider Family Medicine
DX: R07.9 Chest pain, unspecified (principal); R94.31 Abnormal electrocardiogram [ECG] [EKG]; R91.8 Other nonspecific abnormal finding of lung field; I10 Essential (primary) hypertension; E78.5 Hyperlipidemia, unspecified; E66.01 Morbid (severe) obesity due to excess calories; Z68.41 Body mass index [BMI] 40.0-44.9, adult; G47.33 Obstructive sleep apnea (adult) (pediatric); N40.0 Benign prostatic hyperplasia without lower urinary tract symptoms; R73.03 Prediabetes; Z87.891 Personal history of nicotine dependence; Z20.822 Contact with and (suspected) exposure to COVID-19
CPT/HCPCS: 36415; 71046; 71275; 78452; 80048; 80053; 83690; 83735; 84439; 84443; 84480; 84484; 85025; 85055; 85380; 85610; 85652; 85730; 86140; 93005; 93017; 93306; 96365; 96366; 96375; 99285; A9270; A9502; C9803; G0378; J1644; J1885; J2270; J2405; J2785; Q9957; Q9967; U0003; U0005